=== PATIENT | male | born 1990 | race Caucasian/White ===

== ENCOUNTER 2018-01-07 13:14 | Emergency (ER) | payer MEDICAID ==
[~2018-01-07] VITALS: Ht 180.3 cm; Wt 91.2 kg
[2018-01-07 13:14] VITALS: BP 132/79
[2018-01-07] MEDS ORDERED: IBUPROFEN 600 MG TABLET PO ONE ×2 (13:30→13:32)
== END 2018-01-07 13:42 | disposition home or self-care (01) ==
LOC: ER 13:18
DX: S02.5XXA Fracture of tooth (traumatic), initial encounter for closed fracture (principal); S01.511A Laceration without foreign body of lip, initial encounter; W22.8XXA Striking against or struck by other objects, initial encounter; Y93.B3 Activity, free weights; Y92.39 Other specified sports and athletic area as the place of occurrence of the external cause; Y99.8 Other external cause status
CPT/HCPCS: 99283; A4606; A6402; Z7610